=== PATIENT | female | born 1985 | race Caucasian/White ===

== ENCOUNTER 2018-10-01 00:45 | Emergency (ER) | payer OTHER ==
[2018-10-01 00:55] VITALS: BP 137/87; PULSE 114; RESP 28; TEMP 98.4
[2018-10-01] MEDS ORDERED: ALPRAZolam 0.25 MG TAB PO STA (00:57)
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
== END 2018-10-01 01:59 | disposition home or self-care (01) ==
LOC: EC 00:45
DX: S80.811A Abrasion, right lower leg, initial encounter (principal); F43.22 Adjustment disorder with anxiety; F17.200 Nicotine dependence, unspecified, uncomplicated; Z88.1 Allergy status to other antibiotic agents; Z88.7 Allergy status to serum and vaccine; V49.60XA Unspecified car occupant injured in collision with unspecified motor vehicles in traffic accident, initial encounter; Y92.410 Unspecified street and highway as the place of occurrence of the external cause
CPT/HCPCS: 99283